=== PATIENT | female | born 1975 | race American Indian/Alaskan Native ===

== ENCOUNTER 2018-08-28 12:56 | Outpatient (CLI) | payer BC | END 2018-08-28 12:57 | disposition home or self-care (01) | LOC: LAB 12:56 | DX: Z01.812 Encounter for preprocedural laboratory examination (principal); Z01.811 Encounter for preprocedural respiratory examination; Z01.810 Encounter for preprocedural cardiovascular examination ==

== ENCOUNTER 2018-09-30 05:58 | Outpatient (CLI) | payer BC | END 2018-09-30 05:59 | disposition home or self-care (01) | LOC: CARDIO 05:58 ==